=== PATIENT | female | born 1955 | race Caucasian/White ===

== ENCOUNTER 2024-02-08 14:04 | Outpatient (CLI) | payer MEDICARE, MEDICAID, SELFPAY ==
[2024-02-08 14:48] LABS: Basophils % 0.4 % (0.1-2.0); Eosinophils # 0.4 K/mm3 (0.0-0.4); Eosinophils % 7.6 % (0.1-12.0); Hematocrit 33.9 % (37.0-47.0); Hemoglobin 11.2 g/dL (12.2-16.2); Lymphocytes # 1.2 K/mm3 (0.7-4.5); Mean Corpuscular HGB Conc 33.1 g/dL (31.8-35.4); Mean Corpuscular Hemoglobin 28.2 pg (27.0-31.2); Mean Corpuscular Volume 85.2 fl (81-99); Monocytes # 0.4 K/mm3 (0.1-1.0); Monocytes % 6.1 % (1.7-9.3); Neutrophils # 3.8 K/mm3 (1.8-7.8); Neutrophils % 65.8 % (37.0-80.0); Platelet Count 194 K/mm3 (142-424); Red Blood Count 3.98 M/mm3 (4.20-5.40); Red Cell Distribution Width 15.3 % (11.5-17.5); White Blood Count 5.7 K/mm3 (4.8-10.8)
== END 2024-02-08 23:59 | disposition home or self-care (01) ==
PROVIDERS: PCP Nurse Practitioner Family; Visit Provider Nurse Practitioner
DX: Z79.899 Other long term (current) drug therapy (principal)
CPT/HCPCS: 36415; 85025

== ENCOUNTER 2024-09-11 19:50 | Emergency (ER) | payer MEDICARE, MEDICAID, SELFPAY ==
[2024-09-11 19:55] VITALS: BP 162/112; PULSE 73; RESP 18; TEMP 36.7; O2SAT 100; BMI 29.0
--- NOTE | 2024-09-11 19:59 | ECG_ITS ---
APPROVED REPORT Exam: Resting ECG HR:63 bpm ECG Measurements Heart Rate 63 AXES QRSd 90 QRS 63 QT 393 T 73 QTc 400 Conclusion ATRIAL FIBRILLATION No STEMI Electronically signed by : LOU MCBRIDE, 09/14/2024 14:39:51
[2024-09-11 20:01] VITALS: BP 167/91; O2SAT 98
[2024-09-11 20:11] LABS: Basophils # 0.1 K/mm3 (0-0.2); Basophils % 0.8 % (0.1-2.0); Eosinophils # 0.4 Kmm3 (0.0-0.4); Eosinophils % 6.1 % (0.1-12.0); Hematocrit 34.7 % (37.0-47.0); Hemoglobin 11.9 g/dL (12.2-16.2); Immature Granulocytes # 0.02 10^3uL; Immature Granulocytes % 0.3 %; Lymphocytes # 1.6 K/mm3 (0.7-4.5); Lymphocytes % 26.2 % (10-50); Mean Corpuscular HGB Conc 34.3 g/dL (31.8-35.4); Mean Corpuscular Hemoglobin 29.5 pg (27.0-31.2); Mean Corpuscular Volume 85.9 fl (81-99); Mean Platelet Volume 11.1 fl (7.4-10.4); Monocytes # 0.7 K/mm3 (0.1-1.0); Monocytes % 10.7 % (1.7-9.3); Neutrophils # 3.5 K/mm3 (1.8-7.8); Neutrophils % 55.9 % (37.0-80.0); Nucleated Red Blood Cells # 0 10^3/uL; Nucleated Red Blood Cells % 0 %; Platelet Count 244 K/mm3 (142-424); Red Blood Count 4.04 M/mm3 (4.20-5.40); Red Cell Distribution Width 14.3 % (11.5-17.5); Red Cell Distribution Width-SD 45.3 fL; White Blood Count 6.3 K/mm3 (4.8-10.8)
[2024-09-11 20:19] LABS: Alanine Aminotransferase 16 U/L (12-78); Albumin Level 3.7 g/dl (3.5-5.0); Albumin/Globulin Ratio 1.5 (1.1-1.8); Alkaline Phosphatase 93 U/L (38-126); Anion Gap 7.9 mEq/L (5-15); Aspartate Amino Transferase 26 U/L (14-36); Bilirubin,Total 0.3 mg/dl (0.2-1.3); Blood Urea Nitrogen 4 mg/dl (7-17); Calcium 8.7 mg/dl (8.4-10.2); Carbon Dioxide 30 mmol/L (22.0-30.0); Chloride 91 mmol/L (98-107); Creatinine Clearance Estimated 67 mL/min (50-200); Estimated Glomerular Filt Rate 122 ml/min (>60); GFR (African American) 148 ML/MIN (>60); Globulin 2.4 g/dL (1.3-3.2); Glucose 102 mg/dl (74-100); Lipase 41 U/L (23-300); Potassium 3.9 mmoL/L (3.5-5.1); Sodium 125 mmol/L (136-145); Total Protein,Serum 6.1 g/dl (6.3-8.2)
[2024-09-11 20:23] LABS: D-Dimer 0.57 ug/mL (0.0-0.5)
--- NOTE | 2024-09-11 20:31 | XR_ITS ---
PROCEDURE INFORMATION: Exam: XR Chest Exam date and time: 09/11/2024 9:01 PM Age: 69 years old Clinical indication: Cough and dyspnea; Additional info: Chest pain TECHNIQUE: Imaging protocol: Radiologic exam of the chest. Views: 2 views. COMPARISON: No relevant prior studies available. FINDINGS: Tubes, catheters and devices: Multiple surgical clips overlie the right breast. Lungs: Central opacities with peribronchial cuffing, seen to advantage on the lateral chest radiograph. Pleural spaces: Unremarkable. No pleural effusion. No pneumothorax. Heart/Mediastinum: Unremarkable. No cardiomegaly. Bones/joints: Unremarkable. IMPRESSION: Combination of findings that suggests viral process versus reactive airways without evidence of consolidation.
[2024-09-11] MEDS: BELLADONNA ALKALOIDS 60 ML ML PO (20:37)
[2024-09-11 20:38] LABS: Troponin I < 0.01 ng/ml (0.00-0.034)
[2024-09-11] MEDS: KETOROLAC 30MG/ML VIAL 15 MG IV (20:38)
[2024-09-11] MEDS: ACETAMINOPHEN 500MG TAB 1000 MG PO (20:38)
--- NOTE | 2024-09-11 22:01 | HMH.EDCP ---
Discharge Plan Disposition Patient Disposition: Home, Self-Care Condition: Good Referrals Follow up/Referrals: Provider,MD Maximo [Primary Care Provider] - See instructions Jonnathan nAsari MD [Staff Physician] - See instructions Activity Restrictions/Add. Instructions Additional Instructions/Restrictions: You were evaluated in the emergency department today. Please follow-up closely with primary care as well as with cardiology given your chest pain. Workup today is reassuring. Return to the emergency department for new or worsening symptoms. Clinical Impressions Clinical Impression: Chest pain, Hyponatremia Instructions Patient Instructions: DI for Atypical Chest Pain Print Language Print Language: Moroccan Discharge ED Provider: Layla Prince General Chief Complaint: Chest Pain Stated Complaint: Chest pain Time Seen by Provider: 09/11/24 20:08 Mode of Arrival: EMS Source of Information: Patient and EMS Description of Symptoms (Recalled from ER Triage Doc. by RN): pt reports chest pain that is midsternal and radiates to the left that began last night. pt reports the pain is sharp and dull History of Present Illness HPI narrative: This patient is a 69-year-old female presenting from [facility] with concern for chest pain. Patient states that the chest pain went on from yesterday until earlier today. She currently is chest pain-free. She notes that it was in the middle of her chest and radiated all the way across her chest, both to the right and the left. It went away spontaneously, nothing seems to make it better or worse. She states its both sharp and dull. She notes that she thinks it is because she has been drinking too much soda. No other associated symptoms noted. She is currently asymptomatic. EMS arrived and noted EKG was reassuring and vitals were reassuring en route. Related Data Allergies Allergy/AdvReac Type Severity Reaction Status Date / Time diphenhydramine (From Allergy Unknown Verified 09/11/24 20:02 Benadryl) allergy reaction [facility] Disclaimer: The information contained in this section may have been updated after the patient was seen, as this information can be updated by other users. Social History Smoking Status: Current every day smoker alcohol intake: never current occupational status: unemployed Travel in the last 8 weeks?: None ROS Obtained: Yes All systems reviewed & no additional complaints except as documented Physical Exam General General appearance: alert and in no apparent distress Head Head exam: atraumatic and normocephalic Eye Eye exam: Present normal appearance, PERRL and EOMI ENT ENT exam: Present normal exam, normal oropharynx, mucous membranes moist and normal external ear exam Neck Neck exam: Present normal inspection, full ROM and trachea midline; Absent tenderness Chest Chest inspection: Present normal inspection and symmetric chest wall rise; Absent tenderness Respiratory Respiratory exam: Present normal lung sounds bilaterally; Absent respiratory distress, wheezes, stridor or accessory muscle use Cardiovascular Cardiovascular exam: Present regular rate and normal rhythm Abdominal Exam Abdominal exam: Present soft; Absent distention, tenderness or guarding Extremities Exam Extremities exam: Present normal inspection, full ROM and normal capillary refill; Absent tenderness or edema Back Exam Back exam: Present normal inspection and full ROM; Absent tenderness Neurological Exam Neurological exam: Present alert, oriented X3, CN II-XII intact and normal gait; Absent motor sensory deficit Psychiatric Psychiatric exam: Present normal affect and normal mood Skin Skin exam: Present warm and dry HEART Score HEART Score HEART Score assessment performed?: Yes History (anamnesis): Slightly suspicious ECG: Normal Age: >65 years Risk factors: 1-2 risk factors Troponin: </= normal limit HEART Score: 3 Critical Care Critical Care Time Critical Care Time: No Medical Decision Making Cruzito Inquiry Pt receiving controlled substance: No Vital Signs Vital Signs: 09/11/24 19:55 09/11/24 20:01 09/11/24 23:03 Temperature 98.1 F 98.1 F Temperature Source Oral Pulse Rate 87 Pulse Rate [Right] 73 Respiratory Rate 18 20 Blood Pressure 167/91 H 105/89 L Blood Pressure [Right Arm] 162/112 H Blood Pressure Mean 121 Blood Pressure Mean [Right Arm] 128 02 Sat by Pulse Oximetry 100 98 Oxygen Delivery Method Room Air Room Air 09/11/24 23:03 Temperature Temperature Source Pulse Rate 78 Pulse Rate [Right] Respiratory Rate Blood Pressure Blood Pressure [Right Arm] Blood Pressure Mean Blood Pressure Mean [Right Arm] 02 Sat by Pulse Oximetry Oxygen Delivery Method Lab Data Labs: Lab Results 09/11/24 19:50: WBC 6.3, RBC 4.04 L, Hgb 11.9 L, Hct 34.7 L, MCV 85.9, MCH 29.5, MCHC 34.3, RDW 14.3, Plt Count 244, MPV 11.1 H, Neut % (Auto) 55.9, Lymph % (Auto) 26.2, Rutherford % (Auto) 10.7 H, Eos % (Auto) 6.1, Baso % (Auto) 0.8, Neut # (Auto) 3.5, Lymph # (Auto) 1.6, Rutherford # (Auto) 0.7, Eos # (Auto) 0.4, Baso # (Auto) 0.1, D-Dimer 0.57 H, Sodium 125 L, Potassium 3.9, Chloride 91 L, Carbon Dioxide 30, Anion Gap 7.9, BUN 4 L, Creatinine 0.50 L, Estimated Creat Clear 67, Estimated GFR 122, Est GFR ( Amer) 148, Glucose 102 H, Calcium 8.7, Total Bilirubin 0.3, AST 26, ALT 16, Alkaline Phosphatase 93, Troponin I < 0.01, Total Protein 6.1 L, Albumin 3.7, Globulin 2.4, Albumin/Globulin Ratio 1.5, Lipase 41 09/11/24 22:25: Troponin I < 0.01 09/11/24 19:50 09/11/24 19:50 Response Orders (Tests/Meds): ED MEDICATIONS Discontinued Medications Generic Name Dose Route Start Last Admin Trade Name Freq PRN Reason Stop Dose Admin Acetaminophen 1,000 mg 09/11/24 20:31 09/11/24 20:38 Acetaminophen 500mg Tab PO 09/11/24 20:32 1,000 mg ONCE ONE Administration Belladonna Alkaloids 60 ml 09/11/24 20:31 09/11/24 20:37 Belladonna Alkaloids 60 Ml Ml PO 09/11/24 20:32 60 ml ONCE ONE Administration Ketorolac Tromethamine 15 mg 09/11/24 20:31 09/11/24 20:38 Ketorolac 30mg/Ml Vial IV 09/11/24 20:32 15 mg ONCE ONE Administration ORDERS Category Date Time Status CXR 2 view (NOT portable) [XR chest 2V] Stat Exams 09/11/24 20:31 Completed Complete Blood Count Auto Diff Stat Lab 09/11/24 19:50 Completed Comprehensive Metabolic Panel Stat Lab 09/11/24 19:50 Completed D-Dimer Stat Lab 09/11/24 19:50 Completed Lipase Stat Lab 09/11/24 19:50 Completed Trop I [Troponin I] Stat Lab 09/11/24 19:50 Completed Troponin I Q3H Lab 09/11/24 22:25 Completed ECG Data Tracing #1: Attestation: I reviewed this ECG and interpreted as documented below: ECG Narrative: Difficult ascertain underlying rhythm given some motion artifact obscuring baseline, but likely atrial fibrillation with a ventricular rate of [address] changes concerning for ischemia ECG initial impression date: 09/11/24 ECG initial impression time: 20:00 MDM Narrative Medical Decision Narrative: In summary, this patient is a 69-year-old female presenting to the Emergency Department for evaluation of chest pain that went on from last night until today but has now resolved. Differential diagnoses considered include but are not limited to ACS, dysrhythmia, GERD, costochondritis, PE. Ruling out the most morbid conditions drove assessment. On exam, patient is sitting upright in no acute distress with no complaints at this time. She states she is feeling fine. Cardiopulmonary exam is reassuring, vitals are reassuring on cardiac telemetry. Workup included CBC, CP, troponin, lipase, chest x-ray, EKG. Given that the patient is over 50, cannot use PERC criteria to exclude PE, but she is low risk based on Wells score. D-dimer was obtained. Patient was given oral GI cocktail and Tylenol present medic improvement as well as IV Toradol. I independently interpreted chest x-ray prior to the radiologist read and noted no pneumothorax, no focal consolidation. Please see their read for final interpretation. Labs were obtained that demonstrated reassuring CBC with only mild anemia, chemistry demonstrates hyponatremia. Unclear what the patient's baseline is, however on my reassessment she is completely asymptomatic, appropriate. I advised that she follow-up closely outpatient for reassessment of this. D-dimer is negative per years criteria.. Troponins are negative x 2 with reassuring EKG, and she is completely asymptomatic so I feel that she is appropriate for discharge home with close follow-up with PCP and cardiology. Strict return precautions were given
--- NOTE | 2024-09-11 22:30 | PC.NURSE ---
Pt was given a bag of chips.
[2024-09-11 23:00] LABS: Troponin I < 0.01 ng/ml (0.00-0.034)
[2024-09-11 23:03] VITALS: BP 105/89; PULSE 78; PULSE 87; RESP 20; TEMP 36.7; O2SAT 100
== END 2024-09-11 23:33 | disposition home or self-care (01) ==
PROVIDERS: Emergency Provider Emergency Medicine
DX: R07.89 Other chest pain (principal); E87.1 Hypo-osmolality and hyponatremia; F17.210 Nicotine dependence, cigarettes, uncomplicated
CPT/HCPCS: 71046; 80053; 83690; 84484; 85025; 85378; 93005; 96374; 99284; J1885

== ENCOUNTER 2024-10-26 18:11 | Emergency (ER) | payer MEDICARE, MEDICAID, SELFPAY ==
--- NOTE | 2024-10-26 18:11 | XR_ITS ---
PROCEDURE INFORMATION: Exam: XR Left Knee Exam date and time: 10/26/2024 6:19 PM Age: 69 years old Clinical indication: Pain; Knee; Left TECHNIQUE: Imaging protocol: Radiologic exam of the left knee. Views: 3 views. COMPARISON: No relevant prior studies available. FINDINGS: Bones/joints: Moderate to moderately severe degenerative changes of the medial compartment and mild degenerative changes of the lateral and patellofemoral compartments. No acute fracture identified. Soft tissues: Normal. IMPRESSION: No acute abnormality. Degenerative changes most pronounced in the medial compartment.
--- NOTE | 2024-10-26 18:12 | ED_ITS ---
<Statement entered by Tamia Lezama MD - 10/26/24 23:33> I was consulted by the ALVARADO, and we discussed the complexity of the problems being addressed. I approved the treatment and management plan for this patient's care in the emergency department, thus performing a substantive portion of the medical decision making. Tamia Lezama MD, ROSANGELA, FACEP Discharge Plan Disposition Patient Disposition: Home, Self-Care Prescriptions Prescriptions: New ibuprofen 800 mg tablet 800 mg PO Q8H Qty: 30 0RF Referrals Follow up/Referrals: Justin Garcia DO [Staff Physician, Orthopedics] - See instructions Provider,Referral, [Primary Care Provider, Medical] - See instructions Activity Restrictions/Add. Instructions Additional Instructions/Restrictions: Ice, elevate and take ibuprofen for pain. Please follow-up with Dr. Garcia. Clinical Impressions Clinical Impression: Acute knee pain Instructions Patient Instructions: DI for Acute Pain -- Adult Print Language Print Language: Telugu Discharge ED Provider: Tamia Lezama General Adult HPI General Chief complaint: PAIN Stated complaint: fall Time Seen by Provider: 10/26/24 18:12 History of Present Illness HPI narrative: 69-year-old female presents via EMS for left knee pain after falling this morning getting on the bus. She denies any other injury. She took Tylenol earlier today. She was able to stand up from the stretcher and get to the bed. She is able to bend the knee. She does have a small bruise on the left knee. No obvious deformity or swelling. Patient does complain of pain Related Data Previous Rx's ?Medication ?Instructions ?Recorded ibuprofen 800 mg tablet 800 mg PO Q8H #30 tabs 10/26 Allergies Allergy/AdvReac Type Severity Reaction Status Date / Time diphenhydramine (From Allergy Unknown Verified 09/11/24 20:02 Benadryl) allergy reaction [facility] Disclaimer: The information contained in this section may have been updated after the patient was seen, as this information can be updated by other users. Social History (Updated 09/12/24 @ 00:03 by Layla Prince DO) Smoking Status: Current every day smoker alcohol intake: never current occupational status: unemployed Travel in the last 8 weeks?: None Have you lived/traveled outside US in past 30 days?: No Contact w/someone who lives/traveled outside US past 30 days?: No Exposure to someone with infectious disease in past 14 days?: No Do you have a fever (greater than 100.4 F or 38 C)?: No Have you tested positive for COVID-19?: No Exposed to someone with COVID-19 in past 14 days?: No Do you have a sore throat?: No Do you have a cough?: No Do you have any weakness?: No Do you have any diarrhea?: No Are you experiencing any unusual bleeding?: No Do you have any muscle aches/pain?: No Do you have any abdominal pain?: No Are you experiencing loss of taste or smell?: No ROS Obtained: Yes Systems reviewed as appropriate & no additional complaints except as documented Constitutional Constitutional: Reports as per HPI Physical Exam General General appearance: alert and in no apparent distress Head Head exam: normocephalic Eye Eye exam: Present PERRL and EOMI ENT ENT exam: Present normal oropharynx and mucous membranes moist Neck Neck exam: Present full ROM and trachea midline Respiratory Respiratory exam: Present normal lung sounds bilaterally Cardiovascular Cardiovascular exam: Present regular rate, normal rhythm, normal heart sounds, +S1 and +S2 Extremities Exam Extremities exam: Present full ROM, tenderness (Left medial knee pain) and normal capillary refill Neurological Exam Neurological exam: Present alert, oriented X3 and normal gait Skin Skin exam: Present warm, dry and intact Medical Decision Making Medical Records Screening: Per USPSTF and CDC recommendations, given the prevalence of disease in our region, it is our hospital?s policy to screen for HIV and viral Hepatitis for all patients aged 18 and over and those with ongoing risk factors. Cruzito Inquiry Pt receiving controlled substance: No Cruzito was queried for this patient: No Vital Signs: 10/26/24 18:14 10/26/24 19:19 Temperature 98.4 F 98.0 F Temperature Source Oral Oral Pulse Rate 69 Pulse Rate [Right Radial] 69 Respiratory Rate 15 16 Blood Pressure 128/80 Blood Pressure [Right Arm] 135/93 H Blood Pressure Mean [Right Arm] 107 Blood Pressure Source [Right Arm] Automatic Cuff Blood Pressure Position Supine Blood Pressure Position [Right Arm] Supine 02 Sat by Pulse Oximetry 95 Oxygen Delivery Method Room Air Room Air Orders (Tests/Meds): ED MEDICATIONS Discontinued Medications Generic Name Dose Route Start Last Admin Trade Name Freq PRN Reason Stop Dose Admin Ibuprofen 800 mg 10/26/24 18:12 07/05/25 18:25 Ibuprofen 800 Mg Tablet PO 10/26/24 18:13 800 mg ONCE ONE Administration ORDERS Category Date Time Status Knee XR left 3 views [XR knee LT 3V] Stat Exams 10/26/24 18:11 Taken HIV Combo Stat Lab 10/26/24 18:29 Ordered Hepatitis C Ab Qual. W/ RFX Stat Lab 10/26/24 18:29 Ordered Medical Decision Narrative: patient is a 69-year-old female presenting to the emergency department for evaluation of left knee pain after falling this morning. Patient is hemodynamically stable and nontoxic-appearing upon arrival, afebrile. Differential diagnosis includes left knee sprain versus fracture versus tendon injury. Workup will be conducted with specific imaging. Initial inventions include ibuprofen for pain control and swelling. Initial x-ray viewed by myself and Dr. Lezama as arthritic changes but nothing acute. Formal image has not been read at this time. Please review once formal imaging has been read and in chart. Patient has been updated and told to follow-up with Dr. Garcia. Will give patient follow-up information. Patient has been told to rest, elevate and ice and take ibuprofen. Patient safe for discharge home. Critical Care Critical Care Time Critical Care Time: No
[2024-10-26 18:14] VITALS: BP 135/93; PULSE 69; RESP 15; TEMP 36.9; O2SAT 95; BMI 32.5
--- OUTSIDE RECORDS SUMMARY | 2024-10-26 18:19 | XMS_ITS | Clinical Summary ---
Author Organization [facility] Address [address] [place] [address] Phone Care Team Providers Care Manager Packaging Name Role Phone Unavailable Primary Care Provider Unavailabl e Allergies No known active allergies Medications * This document contains information received from the source organization and may not represent a complete record from that organization. 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 Bipolar disorder 02/07/2024 Mood insomnia 02/07/2024 History of alcohol dependence 02/07/2024 Alcohol-induced cognitive dysfunction 02/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 Social History Tobacco Use Types Packs/Day Years Used Date Smoking Tobacco: Never Assessed Comments Unknown Sex and Gender Information Value Date Recorded Sex Assigned at Not on file Legal Sex Female 9:48 AM EDT Gender Identity Not on file Sexual Orientation Not on file Plan of Treatment Health Maintenance Due Date Last Done Comments Wellness Exam Medicare 1958 Hepatitis C Screening 02/23/1972 DTaP/TDaP/Td (1 - Tdap) 1973 Pneumococcal Vaccine 50+ (1 of 2 - PCV) 1973 Breast Cancer Screening 1994 Cologuard 1999 Colon Cancer Screening 1999 Colonoscopy 1999 FIT 1999 Sigmoidoscopy 1999 Virtual Colonography 1999 Zoster (1 of 2) 02/23/2004 Bone Density Screening 2019 COVID-19 Vaccine (2023-2 5 season) 2023 Influenza Vaccine (#1) 2024 Hepatitis B Vaccine Aged Out No longe r eligible based on patient's age to complete this topic Meningococcal B Vaccine Aged Out No l onger eligible based on patient's age to complete this topic [place] [address] [address] [place] [facility] [employer] [place]IC[place] [address]
[2024-10-26] MEDS: IBUPROFEN 800 MG TABLET PO (18:25)
[2024-10-26 19:19] VITALS: BP 128/80; PULSE 69; RESP 16; TEMP 36.7; O2SAT 98
--- NOTE | 2024-10-26 19:25 | PC.NURSE ---
attempted to call elkin landaverde, no answer at this time. will try again in a few minutes
== END 2024-10-26 20:11 | disposition home or self-care (01) ==
PROVIDERS: Emergency Provider Student in an Organized Health Care Education/Training Program
DX: M25.562 Pain in left knee (principal); F17.210 Nicotine dependence, cigarettes, uncomplicated; W01.10XA Fall on same level from slipping, tripping and stumbling with subsequent striking against unspecified object, initial encounter
CPT/HCPCS: 73562; 99283

== ENCOUNTER 2025-02-21 10:04 | Emergency (ER) | payer MEDICARE, MEDICAID, SELFPAY ==
[2025-02-21 10:09] VITALS: BP 160/80; PULSE 62; RESP 18; TEMP 36.7; O2SAT 97; BMI 25.7
--- NOTE | 2025-02-21 10:11 | PC.NURSE ---
Care a van notified patient was ready for transport.
--- NOTE | 2025-02-21 10:12 | HMH.EDGENADL ---
Discharge Plan Disposition Patient Disposition: Xfer SNF Prescriptions Prescriptions: No Action ibuprofen 800 mg tablet 800 mg PO Q8H Qty: 30 0RF Referrals Follow up/Referrals: Provider,Referral, MD [Primary Care Provider, Medical] - See instructions Activity Restrictions/Add. Instructions Additional Instructions/Restrictions: If you develop any chest pain, blurry vision, shortness of breath, or if you become concerned for your health for any reason, return to the emergency department for evaluation. Clinical Impressions Clinical Impression: Hypertension Print Language Print Language: Macedonian Discharge ED Provider: Shaheen Martínez General Adult HPI General Chief complaint: PAIN Stated complaint: Hypertension Time Seen by Provider: 02/21/25 10:04 Mode of Arrival: EMS Source of Information: Patient and EMS Limitations: No Limitations History of Present Illness HPI narrative: Danita Blake is a 69y female with a history of hypertension, currently residing at [facility] who presents to the emergency department for complaints of high blood pressure. Per EMS, patient takes few medications for her blood pressure, including amlodipine, which she did take this morning. Per patient, they checked her blood pressure this morning with a wrist blood pressure cuff and said that it was in the 190s systolic and called EMS. With EMS, her blood pressure was 133 over 70s x 2. Patient has no complaints at this time, denying any chest pain, blurry vision, shortness of breath, abdominal pain. She has chronic difficulty walking that is at her baseline. She ambulated from the EMS stretcher to the hospital stretcher with minimal assistance. Initial blood pressure on arrival is 161/83 Related Data Previous Rx's ?Medication ?Instructions ?Recorded ibuprofen 800 mg tablet 800 mg PO Q8H #30 tabs 10/26/24 Allergies Allergy/AdvReac Type Severity Reaction Status Date / Time diphenhydramine (From Allergy Unknown Verified 09/11/24 20:02 Benadryl) allergy reaction [facility] Disclaimer: The information contained in this section may have been updated after the patient was seen, as this information can be updated by other users. Social History (Updated 09/12/24 @ 00:03 by Layla Prince DO) Smoking Status: Current every day smoker alcohol intake: never current occupational status: unemployed Travel in the last 8 weeks?: None Have you lived/traveled outside US in past 30 days?: No Contact w/someone who lives/traveled outside US past 30 days?: No Exposure to someone with infectious disease in past 14 days?: No Do you have a fever (greater than 100.4 F or 38 C)?: No Have you tested positive for COVID-19?: No Exposed to someone with COVID-19 in past 14 days?: No Do you have a sore throat?: No Do you have a cough?: No Do you have any weakness?: No Do you have any diarrhea?: No Are you experiencing any unusual bleeding?: No Do you have any muscle aches/pain?: No Do you have any abdominal pain?: No Are you experiencing loss of taste or smell?: No ROS Obtained: Yes Systems reviewed as appropriate & no additional complaints except as documented Physical Exam General General appearance: alert and in no apparent distress Head Head exam: atraumatic Eye Eye exam: Present normal appearance, PERRL and EOMI ENT ENT exam: Present normal external ear exam Neck Neck exam: Present full ROM Chest Chest inspection: Present symmetric chest wall rise Respiratory Respiratory exam: Present normal lung sounds bilaterally; Absent respiratory distress, wheezes or stridor Cardiovascular Cardiovascular exam: Present regular rate and normal rhythm Abdominal Exam Abdominal exam: Present soft; Absent distention, tenderness, guarding, rebound or rigidity Extremities Exam Extremities exam: Present normal inspection Back Exam Back exam: Present normal inspection Neurological Exam Neurological exam: Present alert, oriented X3, CN II-XII intact and normal gait Psychiatric Psychiatric exam: Present normal affect Skin Skin exam: Present warm and dry Medical Decision Making Medical Records Screening: Per USPSTF and CDC recommendations, given the prevalence of disease in our region, it is our hospital?s policy to screen for HIV and viral Hepatitis for all patients aged 18 and over and those with ongoing risk factors. [place] Inquiry Pt receiving controlled substance: No Vital Signs: 02/21/25 10:09 Temperature 98.0 F Temperature Source Oral Pulse Rate [Radial] 62 Respiratory Rate 18 Blood Pressure [Right Arm] 160/80 H Blood Pressure Mean [Right Arm] 106 Blood Pressure Source [Right Arm] Automatic Cuff Blood Pressure Position [Right Arm] Sitting 02 Sat by Pulse Oximetry 97 Oxygen Delivery Method Room Air Orders (Tests/Meds): ORDERS Category Date Time Status HIV Combo Stat Lab 02/21/25 10:12 Ordered Hepatitis C Ab Qual. W/ RFX Stat Lab 02/21/25 10:12 Ordered Medical Decision Narrative: Danita Blake is a 69y female with a history of hypertension, currently residing at [facility] who presents to the emergency department for complaints of high blood pressure. Per EMS, patient takes few medications for her blood pressure, including amlodipine, which she did take this morning. Per patient, they checked her blood pressure this morning with a wrist blood pressure cuff and said that it was in the 190s systolic and called EMS. With EMS, her blood pressure was 133 over 70s x 2. Patient has no complaints at this time, denying any chest pain, blurry vision, shortness of breath, abdominal pain. She has chronic difficulty walking that is at her baseline. She ambulated from the EMS stretcher to the hospital stretcher with minimal assistance. Initial blood pressure on arrival is 160/80. Patient is hemodynamically stable, heart rate within normal limits, breathing comfortably on room air with oxygen saturation 97% SpO2. Afebrile. Physical exam, stated above, revealed overall well-appearing female in no distress. She is alert and oriented. She has no focal neurological deficits. Pupils equal round reactive to light. Cardiopulmonary exam is unremarkable. Abdomen is soft, nontender nondistended. She is not having any symptoms to indicate hypertensive emergency, plus her blood pressures are not in the likely range to develop hypertensive emergency given that she is 160/80 currently with unremarkable blood pressures with EMS. I do not feel that she requires a workup at this time and that she is appropriate for discharge back to [facility]. Will arrange for Caravan transport. Critical Care Critical Care Time Critical Care Time: No
--- OUTSIDE RECORDS SUMMARY | 2025-02-21 10:13 | XMS_ITS | Clinical Summary ---
Author Organization [facility] Address [address] [place] [address] Phone Care Team Providers Care Lease Attendant Name Role Phone Unavailable Primary Care Provider Unavailabl e Allergies No known active allergies Medications * This document contains information received from the source organization and may not represent a complete record from that organization. QUEtiapine (SEROQUEL) 100 mg Oral Tablet TAKE 1 TABLET BY MOUTH AT BEDTIME 30 Tablet 11 4 Active divalproex (DEPAKOTE ER) 500 mg Oral Tablet Sustained Release 24 hr TAKE 2 TABLETS (1000MG) BY MOUTH AT BEDTIME 56 Tablet 11 5 Active divalproex (DEPAKOTE ER) 500 mg Oral Tablet Sustained Release 24 hr TAKE 2 TABLETS (1000MG) BY MOUTH AT BEDTIME 60 Tablet 11 4 02/07/20 25 Discontinued Active Problems Problem Noted Date Diagnosed Date [...] 02/23/2004 Bone Density Screening 2019 COVID-19 Vaccine (1 - 2024-2 6 season) 2024 Influenza Vaccine (#1) 2024 Hepatitis B Vaccine Aged Out No longe r eligible based on patient's age to complete this topic Meningococcal B Vaccine Aged Out No l onger eligible based on patient's age to complete this topic Insurance [employer] [place] [address]
[2025-02-21 10:20] VITALS: BP 160/80; PULSE 62; RESP 18; TEMP 36.6; O2SAT 97
== END 2025-02-21 10:20 ==
PROVIDERS: Emergency Provider Student in an Organized Health Care Education/Training Program
DX: I10 Essential (primary) hypertension (principal)
CPT/HCPCS: 99282

== ENCOUNTER 2025-02-28 14:43 | Outpatient (CLI) | payer MEDICARE, MEDICAID, SELFPAY ==
--- OUTSIDE RECORDS SUMMARY | 2025-02-28 14:45 | XMS_ITS | Clinical Summary ---
Author Organization [facility] Address [address] [place] [address] Phone Care Team Providers Care [employer] Officer Name Role Phone Unavailable Primary Care Provider [...] [place] [address]
--- NOTE | 2025-02-28 14:49 | MM_ITS ---
PROCEDURE INFORMATION: Exam: Bilateral Screening 3D Mammography Exam date and time: 02/28/2025 2:55 PM Age: 70 years old Clinical indication: Screening examination. Technologist indicates personal history of breast cancer. TECHNIQUE: Imaging protocol: Bilateral Screening tomosynthesis and 2D mammography including computer-aided detection (CAD) when performed.The technologist's notes document that best images possible were obtained to the patient's abilities. COMPARISON: No relevant prior studies available.If prior mammograms are provided, I am happy to add an addendum. FINDINGS: MAMMOGRAPHY: Breast composition: The breasts are heterogeneously dense, which may obscure small masses. Mass: Oval 0.5 cm mass with related notch, compatible with a intramammary lymph node in the right upper outer quadrant posteriorly. No suspicious mass. Architectural distortion: Right architectural distortion and asymmetry related to surgical clips at site of presumed right lumpectomy which can be correlated clinically. Calcifications: Scattered similar bilateral benign-appearing calcifications. No suspicious calcifications. Asymmetric density: None. Skin thickening: None. Axillary adenopathy: None. IMPRESSION: Postsurgical changes most consistent with right lumpectomy given the history, which can be correlated clinically. No mammographic evidence of malignancy. Annual screening is recommended unless otherwise clinically indicated. ASSESSMENT: BI-RADS Category 2: Benign.
== END 2025-02-28 23:59 | disposition home or self-care (01) ==
PROVIDERS: PCP Nurse Practitioner Family; Visit Provider Nurse Practitioner Family
DX: Z12.31 Encounter for screening mammogram for malignant neoplasm of breast (principal); R92.333 Mammographic heterogeneous density, bilateral breasts; R92.1 Mammographic calcification found on diagnostic imaging of breast; Z90.11 Acquired absence of right breast and nipple
CPT/HCPCS: 77063; 77067

== ENCOUNTER 2025-03-19 16:51 | Emergency (ER) | payer MEDICARE, MEDICAID, SELFPAY ==
--- NOTE | 2025-03-19 16:56 | XR_ITS ---
PROCEDURE INFORMATION: Exam: XR Sacrum and Coccyx, 2 or More Views Exam date and time: 03/19/2025 5:05 PM Age: 70 years old Clinical indication: Injury or trauma; Fall; Blunt trauma (contusions or hematomas) TECHNIQUE: Imaging protocol: XR of the sacrum and coccyx, 2 or more views. COMPARISON: CR XR COCCYX 2V 03/19/2025 5:05 PM FINDINGS: Bones/joints: No acute fracture or dislocation. Mild bilateral hip joint space narrowing. Mild spurring at the margins of the pubic symphysis. Grade 1 L4-L5 spondylolisthesis. Soft tissues: Normal. IMPRESSION: No acute findings.
--- NOTE | 2025-03-19 16:57 | ED_ITS ---
<Statement entered by Reggie Bender DO - 03/20/25 00:55> I was consulted by the ALVARADO, and we discussed the complexity of problems being addressed. I approved the treatment and management plan for this patient's care in the emergency department, thus performing a substantive portion of the medical decision making. Reggie Bender DO Discharge Plan Disposition Patient Disposition: Home, Self-Care Prescriptions Prescriptions: No Action ibuprofen 800 mg tablet 800 mg PO Q8H Qty: 30 0RF Referrals Follow up/Referrals: Colette Blount APRN [Primary Care Provider, Medical] - See instructions Activity Restrictions/Add. Instructions Additional Instructions/Restrictions: May use heat or ice for pain if needed. Also may take Tylenol or ibuprofen as needed. Clinical Impressions Clinical Impression: Fall Instructions Patient Instructions: How to Prevent Falls Print Language Print Language: Barbadian Discharge ED Provider: Reggie Bender General Adult HPI General Chief complaint: Fall Stated complaint: Fall Time Seen by Provider: 03/19/25 16:53 History of Present Illness HPI narrative: 70-year-old female who presents to the ED via EMS from [facility] after she tripped over a rug and fell onto her coccyx. She denies loss of consciousness, denies any strike to the head or neck. She says she fell hard on her butt . She is lifting her legs and moving her upper body with no pain. She is alert and oriented. Related Data Previous Rx's ?Medication ?Instructions ?Recorded ibuprofen 800 mg tablet 800 mg PO Q8H #30 tabs 10/26 Allergies Allergy/AdvReac Type Severity Reaction Status Date / Time diphenhydramine (From Allergy Unknown Verified 09/11/24 20:02 Benadryl) allergy reaction [facility] Disclaimer: The information contained in this section may have been updated after the patient was seen, as this information can be updated by other users. Social History (Updated 09/12/24 @ 00:03 by Layla Prince DO) Smoking Status: Current every day smoker alcohol intake: never current occupational status: unemployed Travel in the last 8 weeks?: None Have you lived/traveled outside US in past 30 days?: No Contact w/someone who lives/traveled outside US past 30 days?: No Exposure to someone with infectious disease in past 14 days?: No Do you have a fever (greater than 100.4 F or 38 C)?: No Have you tested positive for COVID-19?: No Exposed to someone with COVID-19 in past 14 days?: No Do you have a sore throat?: No Do you have a cough?: No Do you have any weakness?: No Do you have any diarrhea?: No Are you experiencing any unusual bleeding?: No Do you have any muscle aches/pain?: No Do you have any abdominal pain?: No Are you experiencing loss of taste or smell?: No ROS Obtained: Yes Systems reviewed as appropriate & no additional complaints except as documented Constitutional Constitutional: Reports as per HPI Physical Exam General General appearance: alert and in no apparent distress Head Head exam: normocephalic Eye Eye exam: Present PERRL and EOMI ENT ENT exam: Present normal oropharynx and mucous membranes moist Neck Neck exam: Present full ROM and trachea midline Respiratory Respiratory exam: Present normal lung sounds bilaterally Cardiovascular Cardiovascular exam: Present regular rate, normal rhythm, normal heart sounds, +S1 and +S2 Extremities Exam Extremities exam: Present full ROM and normal capillary refill Neurological Exam Neurological exam: Present alert and oriented X3 Skin Skin exam: Present warm and dry Medical Decision Making Medical Records Screening: Per USPSTF and CDC recommendations, given the prevalence of disease in our region, it is our hospital?s policy to screen for HIV and viral Hepatitis for all patients aged 18 and over and those with ongoing risk factors. Cruzito Inquiry Pt receiving controlled substance: No Cruzito was queried for this patient: No Vital Signs: 03/19/25 16:58 Temperature 98.1 F Temperature Source Oral Pulse Rate [Right Radial] 60 Respiratory Rate 16 Blood Pressure [Right Arm] 167/84 H Blood Pressure Mean [Right Arm] 111 Blood Pressure Source [Right Arm] Automatic Cuff Blood Pressure Position [Right Arm] Sitting 02 Sat by Pulse Oximetry 98 Oxygen Delivery Method Room Air Orders (Tests/Meds): ED MEDICATIONS Discontinued Medications Generic Name Dose Route Start Last Admin Trade Name Freq PRN Reason Stop Dose Admin Acetaminophen 1,000 mg 03/19/25 17:02 03/19/25 17:22 Acetaminophen 500mg Tab PO 03/19/25 17:03 1,000 mg ONCE ONE Administration ORDERS Category Date Time Status Coccyx XR 2 view [XR coccyx 2V] Stat Exams 03/19/25 16:56 Completed Medical Decision Narrative: patient is a 70-year-old female presenting to the emergency department for evaluation of buttock pain after a fall. Patient is hemodynamically stable and nontoxic-appearing upon arrival, afebrile. Differential diagnosis includes fracture of her coccyx versus sprain or strain. Workup will be conducted with specific imaging. Will give Tylenol for pain patient's x-ray showed no acute fi ndings. Patient will be sent home. Patient stable and able to walk through the ER with no pain or instability. Patient safe for discharge home. Critical Care Critical Care Time Critical Care Time: No
[2025-03-19 16:58] VITALS: BP 167/84; PULSE 60; RESP 16; TEMP 36.7; O2SAT 98; BMI 32.9
--- OUTSIDE RECORDS SUMMARY | 2025-03-19 17:18 | XMS_ITS | Clinical Summary ---
Author Organization [place] [facility] Address [address] [place] [address] Phone Care Team Providers Care Shaker Washer Name Role Phone Unavailable Primary Care Provider [...] BY MOUTH AT BEDTIME 56 Tablet 11 02/06/2025 Active Active Problems Problem Noted Date Diagnosed [...] 02/23/2004 Bone Density Screening 2019 COVID-19 Vaccine (2024-2 6 season) 2024 Influenza Vaccine (#1) 2024 Hepatitis B Vaccine Aged Out No longe r eligible based on patient's age to complete this topic Meningococcal B Vaccine Aged Out No l onger eligible based on patient's age to complete this topic [place] [address] [place] [address] [employer] [facility] [place] [address]
[2025-03-19] MEDS: ACETAMINOPHEN 500MG TAB 1000 MG PO (17:22)
[2025-03-19 18:08] VITALS: BP 142/95; PULSE 78; RESP 20; TEMP 36.4; O2SAT 97
== END 2025-03-19 18:08 | disposition home or self-care (01) ==
PROVIDERS: Emergency Provider Student in an Organized Health Care Education/Training Program; PCP Nurse Practitioner Family
DX: M54.50 Low back pain, unspecified (principal); W19.XXXA Unspecified fall, initial encounter
CPT/HCPCS: 72220; 99283; 99284